=== PATIENT | female | born 1995 | race Caucasian/White ===

== ENCOUNTER → 2021-03-06 | Outpatient (CLI) | payer OTHER ==
[~2021-03-06] MED LIST: PRENATAL VITAM1 EAC8 PO
== END ==
LOC: EMI 13:17 → MRI 14:00
DX: H93.A2 Pulsatile tinnitus, left ear (principal)
CPT/HCPCS: 70544

== ENCOUNTER → 2021-04-09 | Outpatient (CLI) | payer OTHER | LOC: MRI 09:45 | DX: H93.A2 Pulsatile tinnitus, left ear (principal) | CPT/HCPCS: 70553; A9577 ==